=== PATIENT | male | born 1985 | race Caucasian/White ===

== ENCOUNTER 2019-07-20 23:58 | Emergency (ER) | payer MEDICAID, OTHER ==
[~2019-07-20] VITALS: Ht 182.9 cm; Wt 113.6 kg
[2019-07-21 00:04] VITALS: BP 149/100
== END 2019-07-21 00:29 ==
LOC: ER 23:59
DX: R45.1 Restlessness and agitation (principal); M25.551 Pain in right hip
CPT/HCPCS: 99283